=== PATIENT | male | born 1990 | race Caucasian/White ===

== ENCOUNTER 2021-09-14 02:57 | Emergency (ER) | payer SELFPAY ==
[~2021-09-14] VITALS: Ht 177.8 cm; Wt 78.4 kg
[2021-09-14] MEDS ORDERED: FAMOTIDINE 20MG TABLET PO ONE (04:00)
[2021-09-14] MEDS ORDERED: ONDANSETRON HCL 4MG/2ML INJ IM ONE (04:00)
[2021-09-14] MEDS ORDERED: DICYCLOMINE HCL 10MG CAPSULE PO ONE (04:00)
[2021-09-14] MEDS ORDERED: MAGNESIUM/ALUMINUM HYDROXIDE/SIMETHICONE 30ML UDC PO ONE (04:00)
[2021-09-14 04:22] LABS: BASOPHILS % 0.5 % (0.0-2.0); EOSINOPHILS % 1.5 % (0.0-5.0); HEMATOCRIT. 43.8 % (42.0-52.0); HEMOGLOBIN. 15.2 g/dL (14.0-18.0); LYMPHOCYTES % 26.6 % (20.0-50.0); MEAN CORPUSCULAR HEMOGLOBIN 28.7 pg (28.0-32.0); MEAN CORPUSCULAR VOLUME 82.5 fL (80.0-94.0); MEAN PLATELET VOLUME 8.4 fl (7.4-10.4); NEUTROPHILS % 64.4 % (40.0-76.0); PLATELET 237 x1000/uL (130-400); RED BLOOD CELL COUNT 5.31 mill/uL (4.7-6.1); RED CELL DISTRIBUTION WIDTH 13.2 % (11.6-14.6)
[2021-09-14 04:31] LABS: CHLORIDE 109 mEq/L (98-107)
[2021-09-14] MEDS ORDERED: FAMO-135 MT (05:22)
[2021-09-14 06:01] VITALS: BP 115/60
== END 2021-09-14 06:11 | disposition home or self-care (01) ==
LOC: ER 02:57
DX: R10.13 Epigastric pain (principal); M54.6 Pain in thoracic spine
CPT/HCPCS: 36415; 71045; 80053; 83690; 85025; 85379; 96372; 99284; J2405; Z7610